=== PATIENT | female | born 1980 | race Caucasian/White ===

== ENCOUNTER 2016-11-18 05:06 | Day surgery (SDC) | payer OTHER ==
[2016-11-16 13:12] VITALS: BMI 26.2
[2016-11-18] MEDS ORDERED: ceFAZolin SODIUM 1 GM VIAL IVPB ONE (07:38)
--- NOTE | 2016-11-18 08:02 | HP ---
Past Medical History - Primary Care Physician PCP:: Umm Mcgarry - Admission Chief Complaint: 35 yrs Ld 09/26/16 , requests for voluntory sterlization. h/o abnormal pap , reported Lsil on 11/08/16 , prior to It colposcoppc Bx was HSIL on 12/29/15 . hence LEEP cone BX cx History of Present Illness: OB hx 4 . # sons, 1 daughter LD( G5) 09/16/2016 Baby boy, 6'11" . 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 No: Ectopic , Endometriosis, Fibroids, Polycystic Ovary Syndrome ...: 5 ...Para: 4 ...Term: 4 ...Spon : 1 ...LMP: 09/23/16 (LAST Delivery , lochia has stopped ) Heme/Onc: Yes: Anemia (during , rx po vit, Iron) Infectious Disease: Yes: Other (txed for chlamydia mov 2015. h/o HPV 16 pos) Endocrine: No: Diabetes Mellitus, Hypothyroidism - Past Surgical History Past Surgical History: Yes: None Hx Myomectomy: No Hx Transabdominal Cerclage: No - Smoking History Smoking history: Never smoked Have you smoked in the past 12 months: Yes - Alcohol/Substance Use Hx Alcohol Use: No History of Substance Use: reports: None (pt uses huka , twice a week, last used 1 week ago.) - Social History History of Recent Travel: No Home Medications - Allergies Allergies/Adverse Reactions: Allergies Allergy/AdvReac Type Severity Reaction Status Date / Time ibuprofen [From Motrin] Allergy Severe Verified 09/15/16 18:11 - Home Medications Home Medications: Ambulatory Orders Ferrous Sulfate [Feosol] 325 mg PO BID 06/28/16 Vitamins (Sjr) - 1 tab PO DAILY 06/28/16 Physical Exam-FERMENTER WINE Vital Signs: Vital Signs Temperature 97.9 F 11/18/16 06:42 Pulse Rate 69 11/18/16 06:42 Respiratory Rate 20 11/18/16 06:42 Blood Pressure 116/76 11/18/16 06:42 O2 Sat by Pulse Oximetry (%) Constitutional: Yes: Well Nourished, No Distress Eyes: Yes: WNL, Other HENT: Yes: Atraumatic, Normocephalic Neck: Yes: WNL Cardiovascular: Yes: WNL Respiratory: Yes: WNL Gastrointestinal: Yes: WNL Renal/: Yes: WNL Pelvis: Yes: WNL External Genitalia: Yes: Normal Vaginal Exam: Yes: Normal. No: Condyloma Cervix: Yes: Normal, Erosion Uterus: Yes: Normal, Anteverted, Firm Adnexa: Normal: Bilateral, Not Palpable: Bilateral Breast(s): Yes: WNL (milk secretion) Musculoskeletal: Yes: WNL Extremities: Yes: WNL. No: Calf Tenderness Edema: No Integumentary: Yes: Tattoos Neurological: Yes: WNL, Alert, Oriented ...Motor Strength: WNL Psychiatric: Yes: WNL, Alert, Oriented Labs: Laboratory Tests 11/16/16 11/16/16 11/16/16 12:52 12:52 12:52 WBC 6.1 D Hgb 11.1 D Hct 34.1 D Plt Count 329 D Neutrophils % 48.1 D Lymphocytes % 40.4 H D Monocytes % 7.4 Eosinophils % 3.4 D INR 1.09 Sodium 141 Potassium 4.2 Chloride 104 Anion Gap 11 BUN 17 Calcium 9.0 ALT 22 Total Protein 7.7 Beta HCG, Quant < 1.0 Problem List - Problem (1) Multiparity Code(s): Z64.1 - PROBLEMS RELATED TO MULTIPARITY (2) LGSIL (low grade squamous intraepithelial dysplasia) Code(s): VAZ8339 - (3) Cervical high risk HPV (human papillomavirus) test positive Code(s): R87.810 - CERVICAL HIGH RISK HPV DNA TEST POSITIVE Assessment/Plan 35 yrs LD 09/2016 requests for voluntory sterlization. h/o Last pap lgsil , hr HPV 16 ps , prior to it h/o HGSIL on colposcopic bx on Plan pelviscopic BTL ( bilateral Tubal bipolar Fulgration ) Leep cone Bx Cervix Pt is aware of r/b?a not ltd to hemorrhage, infection, injury bladder bowel, failure of BTL, possible pregn, possible failure reversal, menorrhagia, dysmenorrhea, cx stenosis etc
[2016-11-18] MEDS ORDERED: MIDAZOLAM HCL 2 MG/2 ML SINGLE DOSE VIAL ONE (08:23)
[2016-11-18] MEDS ORDERED: SUCCINYLCHOLINE CHLORIDE 200 MG/10 ML VIAL ONE (08:26)
[2016-11-18] MEDS ORDERED: PROPOFOL 20 ML ONE (08:26)
[2016-11-18] MEDS ORDERED: LIDOCAINE HCL/PF 2% SDV 5ML VIAL ONE (08:27)
[2016-11-18] MEDS ORDERED: ROCURONIUM BROMIDE 50 MG/5 ML VIAL ONE (08:54)
[2016-11-18] MEDS ORDERED: NEOSTIGMINE METHYLSULFATE 0.5 MG/ML - 10 ML MDV ONE (09:22)
[2016-11-18] MEDS ORDERED: DEXAMETHASONE SOD PHOSPHATE 4 MG/1 ML VIAL ONE (09:23)
[2016-11-18] MEDS ORDERED: GLYCOPYRROLATE 0.2 MG/1 ML VIAL ONE ×2 (09:23)
[2016-11-18] MEDS ORDERED: metroNIDAZOLE 0.75% VAGINAL GEL 70 GM TUBE ONE (09:51)
[2016-11-18] MEDS ORDERED: ONDANSETRON 4 MG/2 ML VIAL IVPB PRN (10:02)
[2016-11-18] MEDS ORDERED: oxyCODONE HCL 5 MG TABLET PO PRN ×2 (10:02→10:05)
[2016-11-18] MEDS ORDERED: ACETAMINOPHEN 325 MG TABLET (FP) PO PRN (10:02)
[2016-11-18] MEDS ORDERED: ACETAMINOPHEN 1000 MG/100 ML VIAL (NON FORMULARY) IVPB ONE (10:05)
[2016-11-18] MEDS ORDERED: ONDANSETRON 4 MG/2 ML VIAL IVPUSH PRN (10:05)
--- NOTE | 2016-11-18 10:16 | OP ---
Operative Note - Note: Operative Date: 11/18/16 Pre-Operative Diagnosis: multiparity, voluntory sterlization. LGSIL Cervix Operation: Pelviscopic Bilateral Bioplar Fulgration. LEEP Cone Bx Cervix Findings: uterus normal size, AV, Uterocervical length 9 cm Both tubes & ovaries normal Both tubes Fulgrated at isthmic & ampulary junction . intraperitoneal hemostasis noted Cervix lugol's Iodine unstained area all around cervix due to erosion large leep cone Bx done specimen send in different pieces & ecc to lab hemostasis achieved with cautery & monsel solution & iodoform gauze placed as precaution will remove in ASU before discharge metrogell gel inserted Surgeon: Umm Mcgarry Anesthesiologist/GASOLINE PUMP MECHANIC: Kang Diggs Anesthesia: General Specimens Removed: post lip cx. 6 to 9o'clock. ant lip cx. 3o'clock. ecc Estimated Blood Loss (mls): 40 Drains, Volume Out (mls): 300 Fluid Volume Replaced (mls): 1,200 Operative Report Dictated: Yes
[2016-11-18 12:07] VITALS: TEMP 98.5
[2016-11-18] MEDS ORDERED: ONDANSETRON 4 MG/2 ML VIAL ONE (12:29)
--- NOTE | 2016-11-18 13:58 | PN ---
Progress Note (short form) - Note Progress Note: post op note c/o pain tolerable, scale 5/10 she was nauseous earlier she tolerated po toast & fluids vaginal bleeding none iodoform gauze packing is removed , not soaked .. P/A incision wounds dressing dry . Selected Entries 11/18/16 11/18/16 12:05 12:20 Temperature 98.5 F Pulse Rate 56 L 57 L Respiratory 16 18 Rate Blood Pressure 111/65 120/68 ass : stable . plan discharge today po instructions given Problem List - Problems (1) Multiparity Code(s): Z64.1 - PROBLEMS RELATED TO MULTIPARITY (2) LGSIL (low grade squamous intraepithelial dysplasia) Code(s): JZL0997 - (3) Cervical high risk HPV (human papillomavirus) test positive Code(s): R87.810 - CERVICAL HIGH RISK HPV DNA TEST POSITIVE
--- NOTE | 2016-11-18 14:10 | OP ---
DATE OF OPERATION: 11/18/2016 PREOPERATIVE DIAGNOSIS: Multiparity, voluntary sterilization, cervix with low- grade CHARLOTTE and human papillomavirus high-risk positive. OPERATION: Pelviscopic bilateral bipolar fulguration of the tubes, and LEEP cone biopsy of the cervix. SURGEON: Umm Mcgarry MD ANESTHESIOLOGIST: Kang Diggs MD ANESTHESIA: General. FINDINGS: This is a 35-year-old 5, para 4-0-1-4 who had her last delivery on September 23, 2016. She has had abnormal Pap smears since 2015. Her Pap smear in November 24, 2015 showed low-grade CHARLOTTE. Then, in December 2015, she had a colposcopic biopsy which was reported to show high-grade CHARLOTTE, MATTEO 2. Then, repeat Pap smears in January 2016 and October 2016 showed low-grade CHARLOTTE, HPV-16 positive, high risk. The patient is and has not had her period since last November. Her test is negative. DESCRIPTION OF PROCEDURE: She was taken to the operating room and placed on the table in modified lithotomy position. The skin over her abdomen was painted with Betadine. Her peritoneum and vagina were painted with vinegar and she was draped in the usual manner. Time-out was done. Pelvic examination was done. Uterus was anteverted and normal size. Cervix was posterior. Adnexa were not palpable. Then, a weighted speculum was placed and the anterior lip of the cervix was held with a tenaculum. Cervical erosion was noted all around. The uterocervical length was 9 cm. The HUMI cannula was introduced into the uterine cavity. The tenaculum and weighted speculum were removed and a Valdivia catheter was placed into the bladder. Then, gloves were changed. The patient's position was readjusted. We proceeded with the pelviscopy. Then, the 5-mm trocar and cannula were introduced. A bladed trocar and cannula were introduced from the umbilicus before the incision was made. Then, CO2 was insufflated. Intraperitoneal incision was confirmed. The incision was made in the suprapubic area. Then again, a 5-mm trocar and cannula were introduced into the peritoneal cavity and trocars were removed. The uterus was normal. Both tubes and ovaries were normal. Cul-de-sac was free. Then, first the right tube and then the left tube were picked up in the stomach and then medial to that, the ampullary region was cauterized with bipolar cautery. Hemostasis was verified. Instruments were removed. The skin incision was closed with Dermabond. Then, we proceeded with a LEEP cone biopsy. The Valdivia catheter was removed. The HUMI cannula was removed. Bleeding was coming from the uterine cavity, which was sponged off. Then, vinegar was again applied to the cervix and vagina. Lugol iodine was used and a stained area all around the cervix was noted. The large LEEP wire loop was used and blended current was used. Moved from 3 o'clock to 9 o'clock position of cervix and then the 9 o'clock segment was given separately. Anterior lip was given separately. The 3 o'clock cervix portion was given separately. Endocervical curettage was done. The endocervical canal was dilated. With the ball cautery, coagulation was done all around the cervix and also beyond the area from where the cervix was incised with the LEEP. Hemostasis was verified. Monsel solution was applied. Then Metrogel was put in vagina . As a precaution measure., I put Iodoform gauze into the vagina, which will be removed before discharge . Estimated blood loss was 40 mL. The patient tolerated the procedure well and was transferred to the recovery room in stable condition. Urine output was 300 mL intraoperatively. Wendy [id number] MTDD
[2016-11-18 14:58] VITALS: BP 141/79; PULSE 64
--- NOTE | 2016-11-21 14:08 | PATH ---
Surgical Pathology Report Patient Name: TARA MCCOY [facility]. Rec. #: [id number] /Age/Gender: 1980 (Age: 35) / F Account: [id number] Location: [facility] SURGICAL Taken: 11/18/2016 Received: 11/18/2016 Reported: 11/21/2016 Physicians: Umm Mcgarry M.D. Specimen(s) Received A: BIOPSY POSTERIOR LIP OF CERVIX B: BIOPSY OF CERVIX 6-9 C: BIOPSY ANTERIOR CERVIX D: BIOPSY OF CERVIX 3 O'CLOCK E: ENDOCERVICAL CURETTINGS Clinical History Multiparity/voluntary sterilization Pap LGSIL on 11/08/16 & 11/24/15 HPV-16? Colposcopy Biopsy 12/2015 MATTEO-2 (HSIL) Final Diagnosis A. CERVIX, POSTERIOR LIP, LEEP CONE BIOPSY: CERVICAL SQUAMOUS AND ENDOCERVICAL MUCOSA WITH FOCAL HIGH GRADE SQUAMOUS INTRAEPITHELIAL LESION (CERVICAL INTRAEPITHELIAL NEOPLASIA 2-3/MATTEO 2-3); FOCI OF LOW GRADE SQUAMOUS INTRAEPITHELIAL LESION ALSO PRESENT, PARTIALLY DETACHED SURGICAL RESECTION MARGINS: CANNOT BE DETERMINED DUE TO THE FRAGMENTED NATURE OF THE SPECIMEN AND PARTIAL DETACHMENT OF THE DYSPLASTIC EPITHELIUM. TRANSFORMATION ZONE: PRESENT B. CERVIX, 6-9:00, LEEP CONE BIOPSY: CERVICAL SQUAMOUS AND ENDOCERVICAL MUCOSA WITH FOCAL LOW GRADE SQUAMOUS INTRAEPITHELIAL LESION (CERVICAL INTRAEPITHELIAL METAPLASIA 1/MATTEO 1). SURGICAL RESECTION MARGINS: APPEAR NEGATIVE FOR DYSPLASIA. TRANSFORMATION ZONE: PRESENT. C. CERVIX, ANTERIOR, LEEP CONE BIOPSY: CERVICAL SQUAMOUS AND ENDOCERVICAL MUCOSA WITH FOCAL LOW GRADE SQUAMOUS INTRAEPITHELIAL LESION (CERVICAL INTRAEPITHELIAL NEOPLASIA 1/ MATTEO 1). SURGICAL RESECTION MARGINS: MATTEO 1 FOCALLY EXTENDS TO THE CAUTERIZED ENDOCERVICAL RESECTION MARGIN; NO HIGH GRADE DYSPLASIA IDENTIFIED. D. CERVIX, 3:00, BIOPSY: BENIGN ENDOCERVICAL MUCOSA WITH CHRONIC CERVICITIS. NO SQUAMOUS EPITHELIUM PRESENT. E. ENDOCERVIX, CURETTAGE: FRAGMENTS OF SQUAMOUS EPITHELIUM WITH FOCAL LOW GRADE SQUAMOUS INTRAEPITHELIAL LESION (HPV RELATED KOILOCYTIC CHANGE). FRAGMENTS OF BENIGN ENDOCERVICAL TISSUE. Electronically Signed Keon Vaca M.D. Gross Description A. Received in formalin, labeled "biopsy posterior lip of cervix" are 3 funk-pink unoriented soft tissue fragments ranging from 0.3 x 0.2 x 0.1 cm to 0.9 x 0.4 x 0.2 cm. The specimens are inked green and the larger portions are sectioned. The specimen is entirely submitted in 2 cassettes. B. Received in formalin, labeled "biopsy of cervix 6-9" is a 0.6 x 0.5 x 0.1 cm funk, irregular, unoriented portion of soft tissue. The specimen is inked green, bisected and entirely submitted in one cassette. C. Received in formalin, labeled "biopsy anterior cervix" is a 1.0 x 0.6 x 0.3 cm funk-pink, irregular, unoriented portion of soft tissue. The specimen is inked green, serially sectioned and entirely submitted in one cassette. D. Received in formalin, labeled "biopsy of cervix 3:00" is a 0.5 x 0.4 x 0.1 cm funk-pink, irregular, unoriented portion of soft tissue. The specimen is inked green, trisected and entirely submitted in one cassette. E. Received in formalin, labeled "endocervical curettings" is a 0.6 x 0.5 x 0.2 cm aggregate of blood-tinged mucus, possibly containing soft tissue fragments. The formalin is filtered and the specimen is entirely submitted in one cassette. 11/18/2016 saudi11/18/2016
== END 2016-11-18 14:20 | disposition home or self-care (01) ==
LOC: JASU-SURG 05:06
PROVIDERS: ATTEND Obstetrics & Gynecology
PROC: 0UBC7ZX Excision of Cervix, Via Natural or Artificial Opening, Diagnostic (ICD-10-PCS; 2016-11-18)
PROC: 0U574ZZ Destruction of Bilateral Fallopian Tubes, Percutaneous Endoscopic Approach (ICD-10-PCS; principal; 2016-11-18 08:00)
DX: Z30.2 Encounter for sterilization (principal); R87.612 Low grade squamous intraepithelial lesion on cytologic smear of cervix (LGSIL); R87.810 Cervical high risk human papillomavirus (HPV) DNA test positive
CPT/HCPCS: 88305-TC; 88307-TC; 94760